=== PATIENT | female | born 1965 | race Caucasian/White ===

== ENCOUNTER 2016-05-12 01:57 | Emergency (ER) | payer OTHER ==
--- NOTE | 2016-05-12 02:52 | ED NURSING NOTES ---
Clinical Report - Nurses [facility] [address] [place] [address] 05/12/2016 1:57 [id number] TRI[facility] Triage time 02:May 12 2016. Acuity: LEVEL 3. Chief Complaint: FEVER. 02:10 05/12/16. EMELI COMA SCORE: [place] Coma Scale: 15- eyes open spontaneously (4); best verbal response- oriented x 4 (5); best motor response- obeys commands (6). --02:10 Bisi Doherty R.N. 02:10 05/12/16. BP: 185/104. HR: 89. RR: 15. O2 saturation: 100%. Temp: 97.5 F. Pain level now 4/10. --02:10 Bisi Doherty R.N. Weight: 104.3 kg stated. Height/Length: 67 inches Per Patient. BMI: 36. --02:01 Bisi Doherty R.N. Medications Atenolol Oral 50 mg, at bedtime. Hydrochlorothiazide Oral 25 mg, daily. Lantus Subcutaneous 48 units, 2x a day. --02:05 Bisi Doherty R.N. Tramadol HCL Oral 50 mg, at bedtime. --02:05 Bisi Doherty R.N. Novalog 30 units base and sliding scale, three times a day. --02:06 Bisi Doherty R.N. Amoxicillin Oral. --02:09 Bisi Doherty R.N. Allergies No Known Drug Allergy. --02:05 Bisi Doherty R.N. Medication/allergy information source: the patient. --02:10 Bisi Doherty R.N. History Arrived by private vehicle. Historian: patient. Accompanied by friend. Onset. (4 days ago). ( reported fever, has no thermometer at home but has had chills and sweats. feels like speech is slurring. Under alot of stress. scared she is having a stoke. no other stroke symptoms.). She has had a cough productive of scant amounts of yellow, green sputum. She has had a sore throat. 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 PAST MEDICAL HX: Immunizations: seasonal influenza. SOCIAL HX: Never smoker. No alcohol use or drug use. No recent travel. No infectious disease exposure. No known contact with a sick individual. ABUSE ASSESSMENT: No report of abuse. SELF HARM ASSESSMENT: A self harm assessment was performed. The patient answered "no" to the question "Have you recently felt down, depressed, or hopeless?", "Have you noticed less interest or pleasure in doing things?", "Do you have thoughts of harming or killing yourself?", "Are you here because you tried to hurt yourself?", "Have you ever tried to hurt yourself before today?", "Have you recently had thoughts about harming or killing others?" and "Do you have any dangerous items in your possession?". NUTRITIONAL RISK ASSESSMENT: The nutritional risk assessment revealed no deficiencies. FUNCTIONAL ASSESSMENT: Functional assessment: no impairments noted. LEARNING NEEDS ASSESSMENT: The learning needs assessment revealed no barriers. SKIN INTEGRITY ASSESSMENT: Skin integrity risk assessment completed. No skin integrity risk identified. --02:10 Bisi Doherty R.N. PROBLEMS: Hyperglycemia. Hypokalemia. Environmental Allergies. Panic Attack. Chest Pain. Asthma. --02:07 Bisi Doherty R.N. Hypertension [RuleOut]. --02:48 Gilmar Gould MD The following entry was modified by Gilmar Gould MD, 02:48 <<STRICKEN ENTRY-- Hypertension. --21:29 Bisi Doherty R.N. --END STRIKE>>. ADDITIONAL SURGERIES: Hysterectomy. --02:07 Bisi Doherty R.N. Interventions ID band on patient. --02:10 Bisi Doherty R.N. PHYSICAL ASSESSMENT 02:15 05/12/16. To room via wheelchair. GENERAL / NEURO / PSYCH: Alert. Oriented X 4. Appears anxious. HEENT: Pupils equal, round and reactive to light. No nasal discharge. Mucous membranes are pink. RESPIRATORY: Respirations not labored. Cough. Breath sounds within normal limits. CVS: Capillary refill less than 2 seconds. Pulses within normal limits. GI / : Abdomen nontender. No emesis noted. No difficulty with urination. SKIN: Skin intact. Skin is warm and dry. Normal skin turgor. No skin rash or swelling. --02:15 Bisi Doherty R.N. NURSING PROGRESS NOTES 02:01 05/12/16. The initial plan of care for this patient includes an assessment with efforts to address the presence of pain; hydration needs; therapeutic needs of the patient as indicated by complaint specific guidelines. This plan of care was discussed with the patient. Patient gowned. Reassurance given to the patient. Two patient identifiers checked. Call light placed in reach. Side rails up x 1. Bed placed in lowest position. Brakes of bed on. Patient ready for evaluation. --02:14 Bisi Doherty R.N. DISPOSITION / DISCHARGE 03:04 05/12/16. Departure time: 03:May 12 2016. Condition at departure: improved and stable. The goals identified in the patient's plan of care were met. No learning barriers present. Reviewed referral to a primary care physician for followup. Summary of care provided to patient via paper. Patient verbalized understanding. Written instructions provided in Italian. The patient was discharged home and accompanied by concrete paving supervisor. She left the Emergency Department ambulatory and via private vehicle. Glove Tagger driving. --03:04 Bsii Doherty R.N. 03:04 05/12/16. BP: 169/96. HR: 84. RR: 16. O2 saturation: 100%. Temp: 98.0 F. Pain level now 05/21. --03:04 Bisi Doherty R.N. Locked/Released at 05/12/2016 3:09 by Bisi Doherty R.N.
--- NOTE | 2016-05-12 02:52 | ED CLINICAL REPORT ---
Clinical Report - Physicians/Mid Levels [facility] [address] [place] [address] 05/12/2016 1:57 Patient: ANNA MARROQUIN Time Seen: 02:09. Arrived- By private vehicle. Historian- patient. HISTORY OF PRESENT ILLNESS Chief Complaint: COUGH. This started about 4 days ago and is still present. It was gradual in onset and has been constant and waxing/waning. The illness is described as moderate. The patient has had a cough, nasal congestion, sinus pressure, chills and muscle aches. She has had a nasal discharge. She has had moderate amounts of thick, yellow sputum. No chest discomfort or pain. Recent medical care: The patient was seen recently at another facility in a clinic. Seen for similar symptoms. Evaluation/treatment: antibiotic prescribed and see medication list. Diagnosis: bronchitis. REVIEW OF SYSTEMS The patient has had chills and experienced sweats. No fever, calf pain, chest pain, pedal edema or palpitations. No abdominal pain, constipation, diarrhea, nausea or vomiting. No urinary problems. She is anxious about her blood pressure being high. All systems otherwise negative, except as recorded above. PAST HISTORY Problems: Dehydration. Laceration. Adverse Drug Reaction. URI. Diarrhea. Dental Pain. Hyperglycemia. Hypokalemia. Vomiting. Abdominal Pain. Animal Bite. Contusion. Sprain. Insect Bite(s). Skin Rash. Insomnia. Environmental Allergies. Panic Attack. Chest Pain. Anxiety Reaction. Asthma. Diabetes Mellitus. Additional Surgeries: Hysterectomy. Medications: Amoxicillin Oral. Novalog 30 units base and sliding scale, three times a day. Tramadol HCL Oral 50 mg, at bedtime. Atenolol Oral 50 mg, at bedtime. Hydrochlorothiazide Oral 25 mg, daily. Lantus Subcutaneous 48 units, 2x a day. Allergies: No Known Drug Allergy. SOCIAL HISTORY Never smoker. No alcohol use or drug use. FAMILY HISTORY Denies family medical history. ADDITIONAL NOTES The nursing notes have been reviewed. PHYSICAL EXAM Vital Signs: 05/12/2016 02:10 BP: 185/104. HR: 89. RR: 15. O2 saturation: 100%. Temp: 97.5 F. Have been reviewed. Appearance: Alert. Anxious. Eyes: Pupils equal, round and reactive to light. Eyes normal inspection. ENT: Ears normal. Nose normal. Pharynx normal. Neck: Normal inspection. Neck supple. CVS: Normal heart rate and rhythm. Heart sounds normal. Respiratory: No respiratory distress. Breath sounds normal. Abdomen: Soft and nontender. No organomegaly. Back: Normal inspection. Skin: Skin warm and dry. Normal skin color. Normal skin turgor. Extremities: Extremities exhibit normal ROM. No calf tenderness. No lower extremity edema. LABS, X-RAYS, AND EKG Laboratory Tests: UA-Culture if indicated: (NATHALY: 05/12/2016 02:05) ( MsgRcvd 05/12/2016 02:41) Final results Test Result Flag Units (Reference) URINE COLOR YELLOW URINE APPEARANCE CLEAR URINE GLUCOSE NEGATIVE (NEGATIVE) URINE BILIRUBIN NEGATIVE (NEGATIVE) URINE KETONE NEGATIVE (NEGATIVE) URINE SPECIFIC GRAVITY <= 1.005 L (1.010-1.030) URINE PH 6.0 (5.0-8.0) URINE PROTEIN NEGATIVE (NEGATIVE) URINE UROBILINOGEN 0.2 EU/dL (0.2-1.0) URINE NITRITE NEGATIVE (NEGATIVE) URINE BLOOD NEGATIVE (NEGATIVE) URINE LEUK ESTERASE NEGATIVE (NEGATIVE) URINE RBC RARE rbc/hpf (0-1) URINE WBC RARE wbc/hpf (0-1) URINE EPITHELIAL CELLS 0-1 EPI/hpf (0-5) URINE BACTERIA NONE SEEN (NONE SEEN) URINE COMMENT CULT NOT INDICATED URINE CULTURES ARE SET-UP BASED ON THE FOLLOWING CRITERIA:POSITIVE NITRITEPOSITIVE LEUKOCYTE ESTERASEGREATER THAN 10 WHITE BLOOD CELLSMODERATE (2+) OR GREATER BACTERIA . PROGRESS AND PROCEDURES Course of Care: Patient is stable. Patient/family counseled. Old medical records reviewed. Disposition: Discharged. Condition: stable. CLINICAL IMPRESSION Hypertension. Possible bronchitis. INSTRUCTIONS Your Current Medications: CONTINUE TAKING THE FOLLOWING MEDICATIONS: Amoxicillin Oral. Atenolol Oral : 50 mg at bedtime. Hydrochlorothiazide Oral : 25 mg daily. Lantus Subcutaneous : 48 units 2x a day. Novalog* : 30 units base and sliding scale three times a day. Tramadol HCL Oral : 50 mg at bedtime. Follow-up: Follow up with your doctor in seven days. Call for the next available appointment. (Electronically signed by Gilmar Gould MD 05/13/2016 1:34)
--- NOTE | 2016-05-12 02:52 | ED ORDER SUMMARY ---
..... Patient: ANNA MARROQUIN OrderSheet [facility] VisitID: [id number] [address] [place] [address] 50y, F Registration Date/Time: 05/12/2016 ORDER SHEET Weight: 104.3 kg (stated) Allergies: No Known Drug Allergy GENERAL ORDERS: UA-Culture if indicated Urgent (02:12 05/12/2016 Harry Blunt per protocol) (2:22 AMcQuoid ER Tech1) MEDICATION ORDERS: IV FLUIDS: ORDER SHEET NOTES: [Electronically signed by Bisi Doherty R.N. (03:09 05/12/2016)] [Electronically signed by Gilmar Gould MD (01:33 05/13/2016)] [Electronically locked/signed by Bisi Doherty R.N. (03:09 05/12/2016)]
--- NOTE | 2016-05-12 02:52 | ED ORDER SUMMARY ---
..... Patient: ANNA MARROQUIN OrderSheet [facility] VisitID: [id number] [address] [place] [address] 50y, F Registration Date/Time: 05/12/2016 ORDER SHEET Weight: 104.3 kg (stated) Allergies: No Known Drug Allergy GENERAL ORDERS: UA-Culture if indicated Urgent (02:12 05/12/2016 Harry Blunt per protocol) (2:22 AMcQuoid ER Tech1) MEDICATION ORDERS: IV FLUIDS: ORDER SHEET NOTES: [Electronically signed by Bisi Doherty R.N. (03:09 05/12/2016)] [Electronically signed by Gilmar Gould MD (01:33 05/13/2016)] [Electronically locked/signed by Bisi Doherty R.N. (03:09 05/12/2016)]
--- NOTE | 2016-05-12 02:52 | ED NURSING NOTES ---
Clinical Report - Nurses [facility] [address] [place] [address] 05/12/2016 1:57 [id number] Triage time 02:May 12 2016. Acuity: LEVEL 3. Chief Complaint: FEVER. 02:10 05/12/16. EMELI COMA SCORE: [place] Coma Scale: 15- eyes open spontaneously (4); best verbal response- oriented x 4 (5); best motor response- obeys commands (6). --02:10 Bisi Doherty R.N. 02:10 05/12/16. BP: 185/104. HR: 89. RR: 15. O2 saturation: 100%. Temp: 97.5 F. Pain level now 4/10. --02:10 Bisi Doherty R.N. Weight: 104.3 kg stated. Height/Length: 67 inches Per Patient. BMI: 36. --02:01 Bisi Doherty R.N. Medications Atenolol Oral 50 mg, at bedtime. Hydrochlorothiazide Oral 25 mg, daily. Lantus Subcutaneous 48 units, 2x a day. --02:05 Bisi Doherty R.N. Tramadol HCL Oral 50 mg, at bedtime. --02:05 Bisi Doherty R.N. Novalog 30 units base and sliding scale, three times a day. --02:06 Bisi Doherty R.N. Amoxicillin Oral. --02:09 Bisi Doherty R.N. Allergies No Known Drug Allergy. --02:05 Bisi Doherty R.N. Medication/allergy information source: the patient. --02:10 Bisi Doherty R.N. History Arrived by private vehicle. Historian: patient. Accompanied by friend. Onset. (4 days ago). ( reported fever, has no thermometer at home but has had chills and sweats. feels like speech is slurring. Under alot of stress. scared she is having a stoke. no other stroke symptoms.). She has had a cough productive of scant amounts of yellow, green sputum. She has had a sore throat. 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 PAST MEDICAL HX: Immunizations: seasonal influenza. SOCIAL HX: Never smoker. No alcohol use or drug use. No recent travel. No infectious disease exposure. No known contact with a sick individual. ABUSE ASSESSMENT: No report of abuse. SELF HARM ASSESSMENT: A self harm assessment was performed. The patient answered "no" to the question "Have you recently felt down, depressed, or hopeless?", "Have you noticed less interest or pleasure in doing things?", "Do you have thoughts of harming or killing yourself?", "Are you here because you tried to hurt yourself?", "Have you ever tried to hurt yourself before today?", "Have you recently had thoughts about harming or killing others?" and "Do you have any dangerous items in your possession?". NUTRITIONAL RISK ASSESSMENT: The nutritional risk assessment revealed no deficiencies. FUNCTIONAL ASSESSMENT: Functional assessment: no impairments noted. LEARNING NEEDS ASSESSMENT: The learning needs assessment revealed no barriers. SKIN INTEGRITY ASSESSMENT: Skin integrity risk assessment completed. No skin integrity risk identified. --02:10 Bisi Doherty R.N. PROBLEMS: Hyperglycemia. Hypokalemia. Environmental Allergies. Panic Attack. Chest Pain. Asthma. --02:07 Bisi Doherty R.N. Hypertension [RuleOut]. --02:48 Gilmar Gould MD The following entry was modified by Gilmar Gould MD, 02:48 <<STRICKEN ENTRY-- Hypertension. --21:29 Bisi Doherty R.N. --END STRIKE>>. ADDITIONAL SURGERIES: Hysterectomy. --02:07 Bisi Doherty R.N. Interventions ID band on patient. --02:10 Bisi Doherty R.N. PHYSICAL ASSESSMENT 02:15 05/12/16. To room via wheelchair. GENERAL / NEURO / PSYCH: Alert. Oriented X 4. Appears anxious. HEENT: Pupils equal, round and reactive to light. No nasal discharge. Mucous membranes are pink. RESPIRATORY: Respirations not labored. Cough. Breath sounds within normal limits. CVS: Capillary refill less than 2 seconds. Pulses within normal limits. GI / : Abdomen nontender. No emesis noted. No difficulty with urination. SKIN: Skin intact. Skin is warm and dry. Normal skin turgor. No skin rash or swelling. --02:15 Bisi Doherty R.N. NURSING PROGRESS NOTES 02:01 05/12/16. The initial plan of care for this patient includes an assessment with efforts to address the presence of pain; hydration needs; therapeutic needs of the patient as indicated by complaint specific guidelines. This plan of care was discussed with the patient. Patient gowned. Reassurance given to the patient. Two patient identifiers checked. Call light placed in reach. Side rails up x 1. Bed placed in lowest position. Brakes of bed on. Patient ready for evaluation. --02:14 Bisi Doherty R.N. DISPOSITION / DISCHARGE 03:04 05/12/16. Departure time: 03:May 12 2016. Condition at departure: improved and stable. The goals identified in the patient's plan of care were met. No learning barriers present. Reviewed referral to a primary care physician for followup. Summary of care provided to patient via paper. Patient verbalized understanding. Written instructions provided in Macedonian. The patient was discharged home and accompanied by grants manager. She left the Emergency Department ambulatory and via private vehicle. Auctioneer Art driving. --03:04 Bisi Doherty R.N. 03:04 05/12/16. BP: 169/96. HR: 84. RR: 16. O2 saturation: 100%. Temp: 98.0 F. Pain level now 05/21. --03:04 Bisi Doherty R.N. Locked/Released at 05/12/2016 3:09 by Bisi Doherty R.N.
--- NOTE | 2016-05-13 01:34 | ED DISCHARGE INSTRUCTIONS ---
Patient: ANNA MARROQUIN General Instructions [facility] VisitID: [id number] [place] [address] 50y, F Registration Date/Time: 05/12/2016 Hypertension. INSTRUCTIONS Your Current Medications: CONTINUE TAKING THE FOLLOWING MEDICATIONS: Amoxicillin Oral. Atenolol Oral : 50 mg at bedtime. Hydrochlorothiazide Oral : 25 mg daily. Lantus Subcutaneous : 48 units 2x a day. Novalog* : 30 units base and sliding scale three times a day. Tramadol HCL Oral : 50 mg at bedtime. Follow-up: Follow up with your doctor in seven days. Call for the next available appointment. ADDITIONAL INFORMATION Bronchitis (Adult: Abx Tx) BRONCHITIS is an infection of the air passages (bronchial tubes). It often occurs during the common cold. Symptoms include cough with mucus (phlegm) and low-grade fever. Bronchitis usually lasts 7-14 days. Mild cases can be treated with simple home remedies. More severe infection is treated with an antibiotic. Home Care: If symptoms are severe, rest at home for the first 2-3 days. When you resume activity, don't let yourself get too tired. Do not smoke. Avoid being exposed to the smoke of others. You may use acetaminophen (Tylenol) or ibuprofen (Motrin, Advil) to control fever or pain, unless another medicine was prescribed for this. [NOTE: If you have chronic liver or kidney disease or ever had a stomach ulcer or GI bleeding, talk with your doctor before using these medicines.] Your appetite may be poor, so a light diet is fine. Avoid dehydration by drinking 6-8 glasses of fluids per day (water, soft, drinks, juices, tea, soup, etc.). Extra fluids will help loosen secretions in the lungs. Dqua-yrd-dtztogx cough medicines that containdextromethorphan(such as Robitussin DM) and decongestants (Actifed or Sudafed) may help relieve cough and congestion. [NOTE: Do not use decongestants if you have high blood pressure.] Finish all antibiotic medicine, even if you are feeling better after only a few days. Follow Up with your doctor or as directed if you dont start to feel better after three days. [NOTE: If you are age 65 or older, or if you have chronic asthma or COPD, we recommend a PNEUMOCOCCAL VACCINATION every five years and a yearly INFLUENZAVACCINATION (FLU-SHOT) every . Ask your doctor about this. If you had an X-ray, a radiologist will review it. You will be notified of any new findings that may affect your care.] Get Prompt Medical Attention if any of the following occur: Fever over 100.4F (38.0C) for more than three days Trouble breathing, wheezing or pain with breathing Coughing up blood or increased amounts of colored sputum Weakness, drowsiness, headache, facial pain, ear pain or a stiff neck High Blood Pressure --Established High Blood Pressure (Hypertension) is a chronic disease. The cause is unknown in most cases. It can usually be controlled with lifestyle changes and/or medicines. Symptoms of high blood pressure may include headache, dizziness, visual changes, chest pain and shortness of breath. Sometimes it causes no symptoms at all. However, even if there are no symptoms, untreated high blood pressure increases the risk of heart attack, also known as acute myocardial infarction, or AMI, and stroke. It is a serious health risk and should not be ignored. A normal blood pressure is 120/80 or less. The first (top) number is the "systolic" pressure. The second (bottom) number is the "diastolic" pressure. Hypertension exists when either the top number is 140 or higher, OR the bottom number is 90 or higher on repeated measurements. Home Care: All patients with high blood pressure should do the following to lower their pressure. If you are on medicines, then these methods may reduce or eliminate your need for medicines in the future. Begin a weight loss program if you are overweight. Reduce your salt intake. Avoid high salt foods (olives, pickles, smoked meats, salted potato chips, etc.). Do not add salt to your food at the table. Use only small amounts of salt when cooking. Begin an exercise program. Discuss with your doctor what type of exercise program would be best for you. It doesn't have to be difficult. Even brisk walking for 20 minutes three times a week is a good form of exercise. Avoid medicines which contain heart stimulants. This includes many cold and sinus decongestant pills and sprays as well as diet pills. Check the warnings about hypertension on the label. Stimulants such as amphetamine or cocaine could be lethal for someone with hypertension. Never take these. Limit your caffeine intake or switch to caffeine-free products. Stop smoking. If you are a long-time smoker, this can be hard. Enroll in a stop-smoking program to improve your chance of success. Learning how to handle stress better is an important part of any program to lower blood pressure. Learn about relaxation methods such as meditation, yoga or biofeedback. If medicines were prescribed, take them exactly as directed. Missing doses may cause your blood pressure get out of control. Consider buying an automatic blood pressure machine (available at most pharmacies). Use this to monitor your blood pressure at home and report the results to your doctor. Follow Up: Regular visits to your own physician for blood pressure checks and medicine adjustment is an important part of your care. Make a follow-up appointment as directed by our staff. Get Prompt Medical Attention if any of the following occur: Chest pain or shortness of breath Severe headache Throbbing or rushing sound in the ears Nosebleed Sudden severe abdominal pain Extreme drowsiness, confusion or fainting Dizziness or vertigo (dizziness with spinning sensation) Weakness of an arm or leg or one side of the face Difficulty with speech or vision You have been given the following additional information: Bronchitis, Antiobiotic Treatment (Adult) Hypertension, Established (Electronically signed by Gilmar Gould MD 05/13/2016 1:34)
--- NOTE | 2016-05-13 01:34 | ED MED RECONCILIATION SUMMARY ---
Patient: ANNA MARROQUIN Medication Reconciliation Report [facility] VisitID: [id number] [address] [place] [address] 50y, F Registration Date/Time: 05/12/2016 Weight: 104.3 kg Height/Length: 67 in. BMI: 36.0 ALLERGIES: No Known Drug Allergy The patient's Home Medications are listed below: CONTINUE TAKING THE FOLLOWING MEDICATIONS: Amoxicillin Oral Atenolol Oral 50 mg, at bedtime Hydrochlorothiazide Oral 25 mg, daily Lantus Subcutaneous 48 units, 2x a day Novalog 30 units base and sliding scale, three times a day Tramadol HCL Oral 50 mg, at bedtime The source(s) of the original Home Medication information: patient The following Medications were given to the patient in the Emergency Department: None. The following Medications were prescribed to the patient: None.
--- NOTE | 2016-05-13 01:34 | ED MAR SUMMARY ---
..... Medication Administration Record [facility] [address], [place] [id number] Patient: ANNA MARROQUIN Visit ID: [id number] 50y, F Weight: 104.3 kg Height/Length: 67 in BMI: 36 ALLERGIES: No Known Drug Allergy
--- NOTE | 2016-05-13 01:34 | ED MED RECONCILIATION SUMMARY ---
Patient: ANNA MARROQUIN Medication Reconciliation Report [facility] VisitID: [id number] [address] [place] [address] 50y, F Registration Date/Time: 05/12/2016 Weight: 104.3 kg Height/Length: 67 in. BMI: 36.0 ALLERGIES: No Known Drug Allergy The patient's Home Medications are listed below: CONTINUE TAKING THE FOLLOWING MEDICATIONS: Amoxicillin Oral Atenolol Oral 50 mg, at bedtime Hydrochlorothiazide Oral 25 mg, daily Lantus Subcutaneous 48 units, 2x a day Novalog 30 units base and sliding scale, three times a day Tramadol HCL Oral 50 mg, at bedtime The source(s) of the original Home Medication information: patient The following Medications were given to the patient in the Emergency Department: None. The following Medications were prescribed to the patient: None.
--- NOTE | 2016-05-13 01:34 | ED MAR SUMMARY ---
..... Medication Administration Record [facility] [address] [place], [place] [id number] Patient: ANNA MARROQUIN Visit ID: [id number] 50y, F Weight: 104.3 kg Height/Length: 67 in BMI: 36 ALLERGIES: No Known Drug Allergy
== END 2016-05-12 03:04 | disposition home or self-care (01) ==
LOC: ED SRH 01:57
DX: I10 Essential (primary) hypertension (principal); R05 Cough; E11.9 Type 2 diabetes mellitus without complications; E87.6 Hypokalemia; Z79.4 Long term (current) use of insulin; Z79.891 Long term (current) use of opiate analgesic; Z79.899 Other long term (current) drug therapy
CPT/HCPCS: 90004

== ENCOUNTER 2016-06-15 18:46 | Emergency (ER) | payer OTHER ==
--- NOTE | 2016-06-15 20:52 | DIAGNOSTIC IMAGING REPORT ---
PROCEDURE: XR CHEST 1 VIEW INDICATION: Chest pain. TECHNIQUE: Portable AP view (19 3 hours). COMPARISON: Compared to chest x-ray on 07/31/2014. FINDINGS: Allowing for overlying wires and electrodes, lungs are clear. Heart and mediastinum are normal. Thorax is normal. IMPRESSION: 1. Negative chest.
--- NOTE | 2016-06-15 20:53 | DIAGNOSTIC IMAGING REPORT ---
PROCEDURE: US VENOUS - BILATERAL EXT INDICATION: Bilateral leg pain, left greater than right. TECHNIQUE: Color Doppler duplex imaging of the deep and superficial venous system without and with compression. COMPARISON: None. FINDINGS: RIGHT LOWER EXTREMITY: Deep and superficial venous system of the right lower extremity is within normal limits. There is no evidence of deep vein thrombosis or superficial thrombophlebitis. LEFT LOWER EXTREMITY: Deep and superficial venous system of the left lower extremity is within normal limits. There is no evidence of deep vein thrombosis or superficial thrombophlebitis. IMPRESSION: 1. Negative venous ultrasound of the bilateral lower extremities.
--- NOTE | 2016-06-15 22:11 | ED CLINICAL REPORT ---
Clinical Report - Physicians/Mid Levels [facility] [address] [place] [address] 06/15/2016 18:47 Patient: ANNA MARROQUIN Time Seen: 1856. Arrived- By private vehicle. Historian- patient. HISTORY OF PRESENT ILLNESS Chief Complaint: CHEST PAIN. At its maximum, severity described as moderate. It is described as "pain". No radiation. This started past several days more frequently but started around a month ago and is still present but is better now. (staying the same). It was abrupt in onset and has been intermittent but is not gone now. No nausea, vomiting, difficulty breathing or diaphoresis. (pain to the left lower extremity. worried about DVT. reports no other concerns. 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 No additional chest pain. Similar symptoms previously: None. Recent medical care: Not recently seen/assessed. REVIEW OF SYSTEMS No fever, chills, pedal edema, black stools or skin rash. No bloody stools. All systems otherwise negative, except as recorded above. PAST HISTORY See nurses notes. Medications: Atenolol Oral 50 mg, at bedtime. Hydrochlorothiazide Oral 25 mg, daily. Lantus Subcutaneous 48 units, 2x a day. Novalog 30 units base and sliding scale, three times a day. Tramadol HCL Oral 50 mg, at bedtime. Allergies: No Known Drug Allergy. SOCIAL HISTORY Smoker- current status unknown. History of occasional drug use: marijuana. No alcohol use. No recent travel. Is a local resident. ADDITIONAL NOTES The nursing notes have been reviewed. PHYSICAL EXAM Vital Signs: 06/15/2016 18:58 BP: 162/98. HR: 100. RR: 18. O2 saturation: 96%. Temp: 98.3 F. Oxygen saturation normal. Appearance: Alert. Oriented X3. No acute distress. Eyes: Pupils equal, round and reactive to light. Eyes normal inspection. Neck: Normal inspection. Neck supple. No JVD. CVS: Normal heart rate and rhythm. Heart sounds normal. Pulses normal. Respiratory: No respiratory distress. Breath sounds normal. Chest nontender. Abdomen: Soft and nontender. Bowel sounds normal. Back: Normal external inspection. Skin: Skin warm and dry. Normal skin color. No rash. Normal skin turgor. Extremities: Extremities exhibit normal ROM. No lower extremity edema. LABS, X-RAYS, AND EKG EKG: No acute process. No acute ischemia. Normal EKG. Rate: 96. Normal P waves. Normal VÍCTOR. Normal QRS complex. Normal axis. Normal ST and T waves, QT and QTc. The study has been interpreted contemporaneously. The study has been independently viewed by me. The EKG appears to be a good tracing. Chest X-ray: (PROCEDURE: XR CHEST 1 VIEW INDICATION: Chest pain. TECHNIQUE: Portable AP view (19 3 hours). COMPARISON: Compared to chest x-ray on 07/31/2014. FINDINGS: Allowing for overlying wires and electrodes, lungs are clear. Heart and mediastinum are normal. Thorax is normal. IMPRESSION: 1. Negative chest.). Views: PA. The X-rays were independently viewed by me and interpreted by the radiologist. The X-rays were discussed with the radiologist (via pacs). Lower Extremity Sonography: Negative exam. No compression abnormality noted. The exam was performed by a photovoltaic testing technician. Laboratory Tests: Urine: (NATHALY: 06/15/2016 20:30) ( [facility] 20:52) Final results Test Result Flag Units (Reference) URINE NEGATIVE CBC w Diff: (NATHALY: 06/15/2016 19:05) ( [facility] 06/15/2016 19:29) Final results Test Result Flag Units (Reference) WHITE BLOOD COUNT 12.5 H K/uL (4.5-11.5) RED BLOOD COUNT 5.17 M/uL (4.00-5.20) HEMOGLOBIN 14.1 gm/dL (12.0-16.0) HEMATOCRIT 42.5 % (36.0-46.0) MEAN CELL VOLUME 82 fL (80-100) MEAN CORPUSCULAR HGB 27 pg (26-34) MEAN CORPUSCULAR HGB CONC 33 g/dL (31-37) RED CELL DISTRIBUTION WIDTH 13.8 % (11.6-14.8) PLATELET COUNT 265 K/uL (150-400) NEUTROPHIL % 60.9 % (50-75) LYMPH % 30.1 % (25-40) MONO % 5.9 % (3-14) EOSINOPHIL % 2.1 % (0-4) BASOPHIL % 1.0 % (0-2) [id number]: (NATHALY: 06/15/2016 19:05) ( [facility] 06/15/2016 20:05) Final results Test Result Flag Units (Reference) D-DIMER QUANTITATIVE < 0.27 L ug/mLFEU (0.27-0.52) The primary value of this quantitative assay relates toits negative predictive value (i.e. exclusion) of pulmonaryembolism/deep vein thrombosis/DIC.Elevated levels of d-dimer may also occur with:, age, cancer, inflammation, liver disease,post-op, infection, hematoma, coronary disease, peripheralarteriopathy, bleeding disorders and thrombolytic treatment.Results should be correlated with other clinical andradiological data.Testing Methodology: Latex Immunoassay Troponin-I: (NATHALY: 06/15/2016 21:20) ( [facility] 06/15/2016 22:02) Final results Test Result Flag Units (Reference) TROPONIN I <0.05 ng/mL (0.00-1.5) TROPONIN REFERENCE RANGE:<0.1 NEGATIVE0.1-1.5 INDETERMINANT>1.5 POSITIVE Urine Drug Screen: (NATHALY: 06/15/2016 20:30) ( [facility] 06/15/2016 20:53) Final results Test Result Flag Units (Reference) AMPHETAMINE/METHAMPHETAMINE NEGATIVE (NEGATIVE) BARBITURATE NEGATIVE (NEGATIVE) BENZODIAZEPINE NEGATIVE (NEGATIVE) CANNABINOID NEGATIVE (NEGATIVE) COCAINE NEGATIVE (NEGATIVE) ECSTASY NEGATIVE (NEGATIVE) METHADONE NEGATIVE (NEGATIVE) OPIATE NEGATIVE (NEGATIVE) The urine drug screen is a qualitative screening test fordrug overdose and abuse. All screen results should beconsidered as presumptive.Drugs screened for are as follows:BenzodiazepinesCocaineAmphetamines/MetamphetaminesTHC (Tetrahydrocannabinol)OpiatesBarbituratesEcstasyMethadonePositive results are unconfirmed. For confirmation, notifythe lab for the specimen to be sent to the reference lab.All confirmations must be performed by a differentmethodology.The ingestion of natural herbal and plant productscontaining Ephedra/Ephedra metabolites can produce in urineone or more substances capable of cross reacting withamphetamine/methamphetamine immunoassays. These testsprovide a preliminary result only. A more specificalternative chemical method must be used to obtain aconfirmed analytical result. CMP: (NATHALY: 06/15/2016 19:05) ( [facility] 06/15/2016 19:58) Final results Test Result Flag Units (Reference) GLUCOSE 120 H mg/dL (70-110) BUN 8 mg/dL (7-18) CREATININE 0.8 mg/dL (0.6-1.3) Estimated GFR >60 mL/min Estimated GFR- >60 mL/min Note: Persistent reduction over 3 months in eGFR<60 mL/min/1.73 m2 defines CKD. Patients with eGFR values>=60 mL/min/1.73 m2 may also have CKD if evidence ofpersistent proteinuria. Additional information may be foundat [email or web address].org. SODIUM 140 mmol/L (136-145) POTASSIUM 3.3 L mmol/L (3.5-5.1) CHLORIDE 101 mmol/L (98-107) CARBON DIOXIDE 29 mmol/L (21-32) CALCIUM 10.1 mg/dL (8.5-10.1) TOTAL PROTEIN 8.1 g/dL (6.4-8.2) ALBUMIN 4.1 g/dL (3.3-5.0) BILIRUBIN, TOTAL 0.4 mg/dL (0.0-1.0) ALKALINE PHOSPHATASE 79 U/L (46-116) AST (SGOT) 34 U/L (15-37) ALT (SGPT) 46 U/L (12-78) TROPONIN I <0.05 L ng/mL (0.00-1.5) TROPONIN REFERENCE RANGE:<0.1 NEGATIVE0.1-1.5 INDETERMINANT>1.5 POSITIVE . PROGRESS AND PROCEDURES Course of Care: thee patient is a pleasant 50-year-old female with past medical history significant for anxiety and diabetes presented for evaluation of chest pain. Symptoms appear to be atypical in nature. Patient has been having off-and-on symptoms for about a month. They've been more frequently over the past few days. Do not appear to be exertional. Patient be evaluated the chest x-ray, EKG, and laboratory studies. Because of the patient's intermittent symptoms, she will be evaluated with a delta troponin. Patient is also having left lower extremity discomfort and has a history of diabetes. Patient be evaluated for DVT with a d-dimer as well as bilateral ultrasound of the lower shrubberies. The patient does not have any significant risk factors for DVT other than those mentioned previously. No swelling noted to the legs. Patient is agreeable to treatment plan. The patient's workup is noted for the findings above. D-dimer is noted to be less than detectable range. Troponin first set is also noted to be negative. No acute findings on EKG. Chest x-ray is also clear. Patient has been resting in bed in no acute distress. Patient has made multiple requests for something to eat and drink. reminded patient that she is in the emergency department and needs to remain nothing by mouth in case of any emergent medical procedure needing to be done under sedation or General anesthesia. The patient's second troponin had returned. Patient's workup is otherwise unremarkable. patient is a good outpatient candidate for outpatient cardiology follow-up. Information for cardiology provided. Contact number provided. Also provided patient with my personal cell phone number for any questions or problems with arranging follow-up. Because of the patient's negative workup, do not fill patient has DVT, PE, thoracic aortic dissection, or acute myocardial infarction. Also do not think patient has pneumonia or pneumothorax. Prior to patient's discharge from the emergency department she was given food and drink while here in the emergency department. After eating, patient had reported burping and sour taste in her mouth as well as some reflux symptoms. Patient was given a GI cocktail which significantly improved her symptoms. Do not feel patient is being admitted to the hospital or require further emergency department workup/evaluation. Patient has been hemodynamically within normal limits and a good outpatient candidate. Discussed with patient her workup here in the emergency department included home care, follow-up, and return precautions. All questions have been answered. The patient expressed understanding of these instructions and was agreeable to them. Disposition: Discharged. Condition: good. CLINICAL IMPRESSION 06/15/2016 20:57 BP: 148/81. HR: 97. RR: 17. O2 saturation: 98%. Pain level now: 0/10. Oxygen saturation normal. Atypical chest pain .12 lead EKG performed. (acute). INSTRUCTIONS Warnings: GENERAL WARNINGS: Return or contact your physician immediately if your condition worsens or changes unexpectedly, if not improving as expected, or if other problems arise. SPECIFICALLY, return if you develop chest, neck, jaw, shoulder, arm, or back pain, difficulty breathing, a fluttering sensation in your chest, lightheadedness, fainting, excessive fatigue, or sudden sweating. Your Current Medications: CONTINUE TAKING THE FOLLOWING MEDICATIONS: Atenolol Oral : 50 mg at bedtime. Hydrochlorothiazide Oral : 25 mg daily. Lantus Subcutaneous : 48 units 2x a day. Novalog* : 30 units base and sliding scale three times a day. Tramadol HCL Oral : 50 mg at bedtime. Prescription Medications: Pepcid 20 mg: take 1 orally every 12 hours as needed for indigestion, upset stomach or heartburn. Dispense thirty (30). No refills. Substitution is permissible. OTC Medications: Aspirin 81 mg (available over the counter): take 1 orally every 24 hours. Dispense thirty (30). No refills. Follow-up: Return to the emergency department as needed. 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 Stahl . Reason for referral: call tomorrow for an appointment. inform them you were here in the emergency department with chest pain. . Summary of care provided to patient and family via paper. Follow up with your doctor in three days. Reason for referral: recheck today's concerns. Summary of care provided to patient via paper. Screening today revealed the patient's blood pressure to be in the normal range. The patient should follow up with a primary care provider for blood pressure management. Understanding of the discharge instructions verbalized by patient. (Electronically signed by Nam Harper Dr. 06/16/2016 9:45)
--- NOTE | 2016-06-15 22:12 | ED ORDER SUMMARY ---
..... Patient: ANNA MARROQUIN OrderSheet [facility] VisitID: [id number] [place] [address] 50y, F Registration Date/Time: 06/15/2016 ORDER SHEET Weight: 104.3 kg (stated) Allergies: No Known Drug Allergy GENERAL ORDERS: Cnc Lathe Machine Operator (Continuous) (CP) (19:04 06/15/2016 Kristy Rabago) (19:10 Bonnie R.N.) EKG - ER Stat (19:06/15/2016 Kristy Rabago) (Ack 19:05 Kriss) (19:10 Kriss) Pulse oximeter (:06/15/2016 Kristy Rabago) (19:10 Sanjuanaitz R.N.) Chest 1V Urgent (19:06/15/2016 Kristy Rabago) (Ack 19:06 Kriss) (19:30 KHoerner) CBC w Diff Urgent (19:05 06/15/2016 Kristy Rabago) (Ack 19:06 Kriss) (19:10 Bonnie R.N.) CMP Urgent (19:05 06/15/2016 Kristy Rabago) (Ack 19:06 Kriss) (19:10 SReitz R.N.) D-Dimer Urgent (19:05 06/15/2016 Kristy Rabago) (Ack 19:06 Kriss) (19:10 Bonnie R.N.) Urine Urgent (19:05 06/15/2016 Kristy Rabago) (Ack 19:06 Kriss) (20:33 KPage-Jacob R.N.) Urine Drug Screen Urgent (19:05 06/15/2016 Kristy Rabago) (Ack 19:06 Kriss) (20:33 KPageJoselito R.N.) Troponin-I Urgent (19:05 06/15/2016 Kristy Rabago) (Ack 19:06 Kriss) (19:10 Bonnie R.N.) US Venous Bilat Urgent (19:06/15/2016 Kristy Rabago) (Ack 19:17 Kriss) (20:33 Huber Trujillo.N.) Troponin-I (july draw now) Urgent (21:05 06/15/2016 Kristy Rabago) (Ack 21:10 IJurca ER Tech1) (22:03 IJurca ER Tech1) MEDICATION ORDERS: GI Cocktail WHITE PO 30 mL (NOW) (21:59 06/15/2016 Kristy Rabago) (22:31 Huber R.N.) IV FLUIDS: Morphine IV 4 mg (HIGH ALERT MEDICATION, NOW) (19:04 06/15/2016 Kristy Rabago) (Ack 19:13 Candy R.N.) IV Saline Lock (19:05 06/15/2016 Kristy Rabago) (Ack 19:13 JDaphne R.N.) ORDER SHEET NOTES: [Electronically signed by Patrizia Christina R.N. (23:02 06/15/2016)] [Electronically signed by Nam Harper Dr. (09:45 06/16/2016)] [Electronically locked/signed by Patrizia Christina R.N. (23:02 06/15/2016)]
--- NOTE | 2016-06-15 22:12 | ED NURSING NOTES ---
Clinical Report - Nurses [facility] [address] [place] [address] 06/15/2016 18:47 Patient: ANNA MARROQUIN TRIAGE Triage time 1850. Acuity: LEVEL 3. Chief Complaint: CHEST PAIN (chest pain started x1 month ago. 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 Alert. No acute distress. SEPSIS SCREEN: Sepsis Screen. Negative (no infection suspected/documented). LETTY COMA SCORE: Letty Coma Scale: 15- eyes open spontaneously (4); best verbal response- oriented x 4 (5); best motor response- obeys commands (6). --19:10 Le Javed R.N. 18:58 06/15/16. BP: 162/98. HR: 100. RR: 18. O2 saturation: 96%. Temp: 98.3 F. Pain level now 0/10. --19:10 Le Javed R.N. Weight: 104.3 kg stated. Height/Length: 66 inches Per Patient. BMI: 37.1. --19:03 Le Javed R.N. Medications Atenolol Oral 50 mg, at bedtime. Hydrochlorothiazide Oral 25 mg, daily. Lantus Subcutaneous 48 units, 2x a day. Novalog 30 units base and sliding scale, three times a day. Tramadol HCL Oral 50 mg, at bedtime. --19:04 Le Javed R.N. Allergies No Known Drug Allergy. --19:04 Le Javed R.N. History Arrived by private vehicle. Historian: patient. Accompanied by (boy friend). Primary physician (Dr. Cruz). ( Asked pt. to put gown on and pt. was upset stating she was going to leave and go to prov. If we didn't treat her like a patient. Educated pt. and instructed pt. about process of getting an ekg and r/o cardiac problems. Pt. agreed to stay for an ekg.). PAST MEDICAL HX: Immunizations: up-to-date. SOCIAL HX: Heavy tobacco smoker (cigarette)- less than 1 pack per day. History of drug use: marijuana. (pt. states she had not used for 20 years). No alcohol use. No infectious disease exposure. ABUSE ASSESSMENT: Abuse assessment: The patient was asked "Do you feel safe in your home?" and "Has anyone hurt you or threatened to hurt you?". No report of abuse. NUTRITIONAL RISK ASSESSMENT: The nutritional risk assessment revealed no deficiencies. FUNCTIONAL ASSESSMENT: Functional assessment: no impairments noted. LEARNING NEEDS ASSESSMENT: The learning needs assessment revealed no barriers. --19:10 Le Javed R.N. PROBLEMS: Dehydration. Laceration. Adverse Drug Reaction. URI. Diarrhea. Dental Pain. Hyperglycemia. Hypokalemia. Vomiting. Abdominal Pain. Animal Bite. Contusion. Sprain. Insect Bite(s). Skin Rash. Environmental Allergies. Panic Attack. Chest Pain. Anxiety Reaction. Asthma. Diabetes Mellitus. --19:05 Le Javed R.N. ADDITIONAL SURGERIES: Hysterectomy. --19:05 Le Javed R.N. Interventions ID band on patient. Transported via wheelchair. --19:10 eL Javed R.N. PHYSICAL ASSESSMENT To room via wheelchair. GENERAL / NEURO / PSYCH: Alert. Appears in no acute distress. HEENT: Mucous membranes are pink. RESPIRATORY: Respirations not labored. CVS: Capillary refill less than 2 seconds. SKIN: Skin is warm and dry. --19:08 Le Javed R.N. CVS: Cardiac rhythm: normal sinus rhythm; (86). --19:10 Le Javed R.N. ( MD at bedside assessing pt. assumed care of pt, pt pain free at this time, pt in SR on monitor, pt reports pain to left lower extremity that has wax/wane and is concerned for a clot. pt reports no hx, does have diabetic neuropathy, however reports "this is a different pain" s/o at bedside). GENERAL / NEURO / PSYCH: Alert. Oriented X 4. HEENT: Pupils equal, round and reactive to light. Mucous membranes are pink. RESPIRATORY: Respirations not labored. Breath sounds within normal limits. CVS: Cardiac rhythm: (SR). Capillary refill less than 2 seconds. SKIN: Skin is warm and dry. Normal skin turgor. --19:23 Patrizia Christina R.N. NURSING PROGRESS NOTES 19:07 06/15/2016 Site #1 started via IV in the left antecubital space with an 20g angiocath, with aseptic technique and good blood return; one attempt. Blood drawn. Labeled in the presence of the patient and sent to the lab. Saline lock flushed with 10 mL saline (accessed by Judah Cornejo RN). --19:07 Le Javed R.N. retirement actuary, pulse oximeter and NIBP monitor placed on patient; cardiac care nurse- Lead II; monitor alarms on. Patient gowned. Head of bed elevated. Two patient identifiers checked. Call light placed in reach. Side rails up x 2. Bed placed in lowest position. Brakes of bed on. Patient ready for evaluation- chart flagged. --19:08 Le Javed R.N. EKG time: (1901). EKG was ordered, performed by a tech and shown to the ED physician. --19:09 Le Javed R.N. Glucose: 113. --19:10 Le Javed R.N. Care transferred and report given (to SHAISTA Acharya). --19:25 Le Javed R.N. 19:56 06/15/16. BP: 147/101. HR: 98. RR: 17. O2 saturation: 98%. Pain level now 0/10. --19:57 Patrizia Christina R.N. retirement actuary, pulse oximeter and NIBP monitor placed on patient; cardiac care nurse- Lead II and V5; monitor alarms on. Patient gowned. Reassurance given. Call light placed in reach. ( pt in SR on monitor, no ectopy noted, US at bedside preparing for study.). --19:57 Patrizia Christina R.N. 20:31 06/15/16. BP: 147/101. HR: 98. RR: 17. O2 saturation: 100%. Pain level now: 0/10. --20:33 Patrizia Christina R.N. ( US cont at bedside, pt updated on lab results per husbands request, pt asked to eat, asked pt to remain NPO until we have studies completed.). --20:33 Patrizia Christina R.N. 19:35 06/15/2016 Morphine IV 4 mg (HIGH ALERT MEDICATION, NOW) was refused by patient and prior to this RN assuming care, pt refused, wasted with Judah Cornejo RN because pain is gone. Patrizia Christina --20:35 Patrizia Christina R.N. 20:57 06/15/16. BP: 148/81. HR: 97. RR: 17. O2 saturation: 98%. Pain level now: 0/10. Additional comments: pt denies cp, does c/o chronic back pain. --20:59 Patrizia Christina R.N. 22:26 06/15/2016 GI COCKTAIL WHITE (Simethicone) PO 30 mL given. Allergies verified and confirmed 5 rights. --22:31 Patrizia Christina R.N. ( pt reports improvement since gi cocktail, preparing pt for dispo). --22:45 Patrizia Christina R.N. 22:50 06/15/2016 GI COCKTAIL WHITE PO Response: no adverse reaction pain is gone now. Symptoms have improved the patient feels better. --22:55 Patrizia Christina R.N. DISPOSITION / DISCHARGE 22:49 06/15/2016 Site #1 removed upon discharge. Bandaid applied. --22:55 Patrizia Christina R.N. Condition at departure: improved. The goals identified in the patient's plan of care were met. No learning barriers present. Discharge instructions provided and reviewed with the patient and family. Reviewed medication(s) information. Patient and family verbalized understanding. Written instructions provided in [place]. The patient was discharged by the physician. She was discharged home and accompanied by spouse. She left the Emergency Department ambulatory and via private vehicle. Spouse driving. ( pt dc home pain free, ambulatory to lobby with steady gait, iv dc intact, rx and f/u instructions provided and pt verbalized understanding). --22:59 Patrizia Christina R.N. 22:54 06/15/16. BP: 140/75. HR: 94 (regular and normal rate). RR: 17. O2 saturation: 98% on room air. Temp: 98.3 F (oral). Pain level now: 0/10. --22:59 Patrizia Christina R.N. Locked/Released at 06/15/2016 23:02 by Patrizia Christina R.N.
--- NOTE | 2016-06-15 22:12 | ED NURSING NOTES ---
Clinical Report - Nurses [facility] [address] [place] [address] 06/15/2016 18:47 Patient: ANNA MARROQUIN TRIAGE Triage time 1850. Acuity: LEVEL 3. Chief Complaint: CHEST PAIN (chest pain started x1 month ago. 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 Alert. No acute distress. SEPSIS SCREEN: Sepsis Screen. Negative (no infection suspected/documented). LETTY COMA SCORE: Letty Coma Scale: 15- eyes open spontaneously (4); best verbal response- oriented x 4 (5); best motor response- obeys commands (6). --19:10 Le Javed R.N. 18:58 06/15/16. BP: 162/98. HR: 100. RR: 18. O2 saturation: 96%. Temp: 98.3 F. Pain level now 0/10. --19:10 Le Javed R.N. Weight: 104.3 kg stated. Height/Length: 66 inches Per Patient. BMI: 37.1. --19:03 Le Javed R.N. Medications Atenolol Oral 50 mg, at bedtime. Hydrochlorothiazide Oral 25 mg, daily. Lantus Subcutaneous 48 units, 2x a day. Novalog 30 units base and sliding scale, three times a day. Tramadol HCL Oral 50 mg, at bedtime. --19:04 Le Javed R.N. Allergies No Known Drug Allergy. --19:04 Le Javed R.N. History Arrived by private vehicle. Historian: patient. Accompanied by (boy friend). Primary physician (Dr. Cruz). ( Asked pt. to put gown on and pt. was upset stating she was going to leave and go to prov. If we didn't treat her like a patient. Educated pt. and instructed pt. about process of getting an ekg and r/o cardiac problems. Pt. agreed to stay for an ekg.). PAST MEDICAL HX: Immunizations: up-to-date. SOCIAL HX: Heavy tobacco smoker (cigarette)- less than 1 pack per day. History of drug use: marijuana. (pt. states she had not used for 20 years). No alcohol use. No infectious disease exposure. ABUSE ASSESSMENT: Abuse assessment: The patient was asked "Do you feel safe in your home?" and "Has anyone hurt you or threatened to hurt you?". No report of abuse. NUTRITIONAL RISK ASSESSMENT: The nutritional risk assessment revealed no deficiencies. FUNCTIONAL ASSESSMENT: Functional assessment: no impairments noted. LEARNING NEEDS ASSESSMENT: The learning needs assessment revealed no barriers. --19:10 Le Javed R.N. PROBLEMS: Dehydration. Laceration. Adverse Drug Reaction. URI. Diarrhea. Dental Pain. Hyperglycemia. Hypokalemia. Vomiting. Abdominal Pain. Animal Bite. Contusion. Sprain. Insect Bite(s). Skin Rash. Environmental Allergies. Panic Attack. Chest Pain. Anxiety Reaction. Asthma. Diabetes Mellitus. --19:05 Le Javed R.N. ADDITIONAL SURGERIES: Hysterectomy. --19:05 Le Javed R.N. Interventions ID band on patient. Transported via wheelchair. --19:10 Le Javed R.N. PHYSICAL ASSESSMENT To room via wheelchair. GENERAL / NEURO / PSYCH: Alert. Appears in no acute distress. HEENT: Mucous membranes are pink. RESPIRATORY: Respirations not labored. CVS: Capillary refill less than 2 seconds. SKIN: Skin is warm and dry. --19:08 Le Javed R.N. CVS: Cardiac rhythm: normal sinus rhythm; (86). --19:10 Le Javed R.N. ( MD at bedside assessing pt. assumed care of pt, pt pain free at this time, pt in SR on monitor, pt reports pain to left lower extremity that has wax/wane and is concerned for a clot. pt reports no hx, does have diabetic neuropathy, however reports "this is a different pain" s/o at bedside). GENERAL / NEURO / PSYCH: Alert. Oriented X 4. HEENT: Pupils equal, round and reactive to light. Mucous membranes are pink. RESPIRATORY: Respirations not labored. Breath sounds within normal limits. CVS: Cardiac rhythm: (SR). Capillary refill less than 2 seconds. SKIN: Skin is warm and dry. Normal skin turgor. --19:23 Patrizia Crhistina R.N. NURSING PROGRESS NOTES 19:07 06/15/2016 Site #1 started via IV in the left antecubital space with an 20g angiocath, with aseptic technique and good blood return; one attempt. Blood drawn. Labeled in the presence of the patient and sent to the lab. Saline lock flushed with 10 mL saline (accessed by Judah Cornejo RN). --19:07 Le Javed R.N. monitor technician, pulse oximeter and NIBP monitor placed on patient; night monitor- Lead II; monitor alarms on. Patient gowned. Head of bed elevated. Two patient identifiers checked. Call light placed in reach. Side rails up x 2. Bed placed in lowest position. Brakes of bed on. Patient ready for evaluation- chart flagged. --19:08 Le Javed R.N. EKG time: (1901). EKG was ordered, performed by a tech and shown to the ED physician. --19:09 Le Javed R.N. Glucose: 113. --19:10 Le Javed R.N. Care transferred and report given (to SHAISTA Acharya). --19:25 Le Javed R.N. 19:56 06/15/16. BP: 147/101. HR: 98. RR: 17. O2 saturation: 98%. Pain level now 0/10. --19:57 Patrizia Christina R.N. monitor technician, pulse oximeter and NIBP monitor placed on patient; night monitor- Lead II and V5; monitor alarms on. Patient gowned. Reassurance given. Call light placed in reach. ( pt in SR on monitor, no ectopy noted, US at bedside preparing for study.). --19:57 Patrizia Christina R.N. 20:31 06/15/16. BP: 147/101. HR: 98. RR: 17. O2 saturation: 100%. Pain level now: 0/10. --20:33 Patrizia Christina R.N. ( US cont at bedside, pt updated on lab results per husbands request, pt asked to eat, asked pt to remain NPO until we have studies completed.). --20:33 Patrizia Christina R.N. 19:35 06/15/2016 Morphine IV 4 mg (HIGH ALERT MEDICATION, NOW) was refused by patient and prior to this RN assuming care, pt refused, wasted with Judah Cornejo RN because pain is gone. Patrizia Christina --20:35 Patrizia Christina R.N. 20:57 06/15/16. BP: 148/81. HR: 97. RR: 17. O2 saturation: 98%. Pain level now: 0/10. Additional comments: pt denies cp, does c/o chronic back pain. --20:59 Patrizia Christina R.N. 22:26 06/15/2016 GI COCKTAIL WHITE (Simethicone) PO 30 mL given. Allergies verified and confirmed 5 rights. --22:31 Patrizia Christina R.N. ( pt reports improvement since gi cocktail, preparing pt for dispo). --22:45 Patrizia Christina R.N. 22:50 06/15/2016 GI COCKTAIL WHITE PO Response: no adverse reaction pain is gone now. Symptoms have improved the patient feels better. --22:55 Patrizia Christina R.N. DISPOSITION / DISCHARGE 22:49 06/15/2016 Site #1 removed upon discharge. Bandaid applied. --22:55 Patrizia Christina R.N. Condition at departure: improved. The goals identified in the patient's plan of care were met. No learning barriers present. Discharge instructions provided and reviewed with the patient and family. Reviewed medication(s) information. Patient and family verbalized understanding. Written instructions provided in Tuvaluan. The patient was discharged by the physician. She was discharged home and accompanied by spouse. She left the Emergency Department ambulatory and via private vehicle. Spouse driving. ( pt dc home pain free, ambulatory to lobby with steady gait, iv dc intact, rx and f/u instructions provided and pt verbalized understanding). --22:59 Patrizia Christina R.N. 22:54 06/15/16. BP: 140/75. HR: 94 (regular and normal rate). RR: 17. O2 saturation: 98% on room air. Temp: 98.3 F (oral). Pain level now: 0/10. --22:59 Patrizia Christina R.N. Locked/Released at 06/15/2016 23:02 by Patrizia Christina R.N.
--- NOTE | 2016-06-15 22:12 | ED ORDER SUMMARY ---
..... 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) (19:04 06/15/2016 Kristy Rabago) (19:10 Bonnie R.N.) EKG - ER Stat (19:06/15/2016 Kristy Rabago) (Ack 19:05 Kriss) (19:10 Kriss) Pulse oximeter (:06/15/2016 Kristy Rabago) (19:10 Sanjuanaitz R.N.) Chest 1V Urgent (19:06/15/2016 Kristy Rabago) (Ack 19:06 Kriss) (19:30 KHoerner) CBC w Diff Urgent (19:05 06/15/2016 Kristy Rabago) (Ack 19:06 Kriss) (19:10 Bonnie R.N.) CMP Urgent (19:05 06/15/2016 Kristy Rabago) (Ack 19:06 Kriss) (19:10 SReitz R.N.) D-Dimer Urgent (19:05 06/15/2016 Kristy Rabago) (Ack 19:06 Kriss) (19:10 Bonnie R.N.) Urine Urgent (19:05 06/15/2016 Kristy Rabago) (Ack 19:06 Kriss) (20:33 KPage-Jacob R.N.) Urine Drug Screen Urgent (19:05 06/15/2016 Kristy Rabago) (Ack 19:06 Kriss) (20:33 KPageJoselito R.N.) Troponin-I Urgent (19:05 06/15/2016 Kristy Rabago) (Ack 19:06 Kriss) (19:10 Bonnie R.N.) US Venous Bilat Urgent (19:06/15/2016 Kristy Rabago) (Ack 19:17 Kriss) (20:33 Huber Trujillo.N.) Troponin-I (july draw now) Urgent (21:05 06/15/2016 Kristy Rabago) (Ack 21:10 IJurca ER Tech1) (22:03 IJurca ER Tech1) MEDICATION ORDERS: GI Cocktail WHITE PO 30 mL (NOW) (21:59 06/15/2016 Kristy Rabago) (22:31 Huber R.N.) IV FLUIDS: Morphine IV 4 mg (HIGH ALERT MEDICATION, NOW) (19:04 06/15/2016 Kristy Rabago) (Ack 19:13 Candy R.N.) IV Saline Lock (19:05 06/15/2016 Kristy Rabago) (Ack 19:13 JDaphne R.N.) ORDER SHEET NOTES: [Electronically signed by Patrizia Christina R.N. (23:02 06/15/2016)] [Electronically signed by Nam Harper Dr. (09:45 06/16/2016)] [Electronically locked/signed by Patrizia Christina R.N. (23:02 06/15/2016)]
--- NOTE | 2016-06-16 09:45 | ED MAR SUMMARY ---
..... Medication Administration Record [facility] [address] [place] [address] Patient: ANNA MARROQUIN Visit ID: [id number] 50y, F Weight: 104.3 kg Height/Length: 66 in BMI: 37.1 ALLERGIES: No Known Drug Allergy Given 22:26 06/15/2016 Patrizia Christina RMaritza Medication Administered: GI COCKTAIL WHITE [PO] (SIMETHICONE), Dose: 30 mL PO. Medication Ordered: GI Cocktail WHITE PO 30 mL (NOW).
--- NOTE | 2016-06-16 09:45 | ED MED RECONCILIATION SUMMARY ---
Patient: ANNA MARROQUIN Medication Reconciliation Report [facility] VisitID: [id number] [address] [place] [address] 50y, F Registration Date/Time: 06/15/2016 Weight: 104.3 kg Height/Length: 66 in. BMI: 37.1 ALLERGIES: No Known Drug Allergy The patient's Home Medications are listed below: CONTINUE TAKING THE FOLLOWING MEDICATIONS: Atenolol Oral 50 mg, at bedtime Hydrochlorothiazide Oral 25 mg, daily Lantus Subcutaneous 48 units, 2x a day Novalog 30 units base and sliding scale, three times a day Tramadol HCL Oral 50 mg, at bedtime The source(s) of the original Home Medication information: Not obtained. The following Medications were given to the patient in the Emergency Department: GI COCKTAIL WHITE [PO] PO 30 mL, administered: 06/15/2016 10:26:00 PM The following Medications were prescribed to the patient: Pepcid 20 mg: take 1 orally every 12 hours as needed for indigestion, upset stomach or heartburn. Dispense thirty (30). No refills. Substitution is permissible. -- Nam Harper Dr. Aspirin 81 mg (available over the counter): take 1 orally every 24 hours. Dispense thirty (30). No refills. -- Nam Harper Dr.
--- NOTE | 2016-06-16 09:45 | ED MAR SUMMARY ---
..... Medication Administration Record [facility] [address] [place] [address] Patient: ANNA MARROQUIN Visit ID: [id number] 50y, F Weight: 104.3 kg Height/Length: 66 in BMI: 37.1 ALLERGIES: No Known Drug Allergy Given 22:26 06/15/2016 Patrizia Christina RMaritza Medication Administered: GI COCKTAIL WHITE [PO] (SIMETHICONE), Dose: 30 mL PO. Medication Ordered: GI Cocktail WHITE PO 30 mL (NOW).
--- NOTE | 2016-06-16 09:45 | ED MED RECONCILIATION SUMMARY ---
Patient: ANNA MARROQUIN Medication Reconciliation Report [facility] VisitID: [id number] [address] [place] [address] 50y, F Registration Date/Time: 06/15/2016 Weight: 104.3 kg Height/Length: 66 in. BMI: 37.1 ALLERGIES: No Known Drug Allergy The patient's Home Medications are listed below: CONTINUE TAKING THE FOLLOWING MEDICATIONS: Atenolol Oral 50 mg, at bedtime Hydrochlorothiazide Oral 25 mg, daily Lantus Subcutaneous 48 units, 2x a day Novalog 30 units base and sliding scale, three times a day Tramadol HCL Oral 50 mg, at bedtime The source(s) of the original Home Medication information: Not obtained. The following Medications were given to the patient in the Emergency Department: GI COCKTAIL WHITE [PO] PO 30 mL, administered: 06/15/2016 10:26:00 PM The following Medications were prescribed to the patient: Pepcid 20 mg: take 1 orally every 12 hours as needed for indigestion, upset stomach or heartburn. Dispense thirty (30). No refills. Substitution is permissible. -- Nam Harper Dr. Aspirin 81 mg (available over the counter): take 1 orally every 24 hours. Dispense thirty (30). No refills. -- Nam Harper Dr.
--- NOTE | 2016-06-16 09:45 | ED DISCHARGE INSTRUCTIONS ---
Patient: ANNA MARROQUIN General Instructions [facility] VisitID: [id number] [place] [address] 50y, F Registration Date/Time: 06/15/2016 06/15/2016 20:57 BP: 148/81. HR: 97. RR: 17. O2 saturation: 98%. Pain level now: 0/10. Oxygen saturation normal. Atypical chest pain .12 lead EKG performed. (acute). INSTRUCTIONS Warnings: GENERAL WARNINGS: Return or contact your physician immediately if your condition worsens or changes unexpectedly, if not improving as expected, or if other problems arise. SPECIFICALLY, return if you develop chest, neck, jaw, shoulder, arm, or back pain, difficulty breathing, a fluttering sensation in your chest, lightheadedness, fainting, excessive fatigue, or sudden sweating. Your Current Medications: CONTINUE TAKING THE FOLLOWING MEDICATIONS: Atenolol Oral : 50 mg at bedtime. Hydrochlorothiazide Oral : 25 mg daily. Lantus Subcutaneous : 48 units 2x a day. Novalog* : 30 units base and sliding scale three times a day. Tramadol HCL Oral : 50 mg at bedtime. Prescription Medications: Pepcid 20 mg: take 1 orally every 12 hours as needed for indigestion, upset stomach or heartburn. Dispense thirty (30). No refills. Substitution is permissible. OTC Medications: Aspirin 81 mg (available over the counter): take 1 orally every 24 hours. Dispense thirty (30). No refills. Follow-up: Return to the emergency department as needed. Follow up with a dealer support technician Dr. Stahl . Reason for referral: call tomorrow for an appointment. inform them you were here in the emergency department with chest pain. . Summary of care provided to patient and family via paper. Follow up with your doctor in three days. Reason for referral: recheck today's concerns. Summary of care provided to patient via paper. Screening today revealed the patient's blood pressure to be in the normal range. The patient should follow up with a primary care provider for blood pressure management. Understanding of the discharge instructions verbalized by patient. ADDITIONAL INFORMATION Chest Pain, Uncertain Cause Chest pain can happen for a number of reasons. Sometimes the cause can not be determined. If yourcondition does not seem serious, and your pain does not appear to be coming from your heart, your doctor may recommend watching it closely. Sometimes the signs of a serious problem take more time to appear. Therefore, watch for the warning signs listed below. Home care After your visit, follow these recommendations: Rest today and avoid strenuous activity. Take any prescribed medicine as directed. Follow-up care Follow up with your doctor or this facility as instructed or if you do not start to feel better within 24 hours. Call 911 Get immediate medical attention if any of the following occur: A change in the type of pain: if it feels different, becomes more severe, lasts longer, or begins to spread into your shoulder, arm, neck, jaw or back Shortness of breath or increased pain with breathing Weakness, dizziness, or fainting Rapid heart beat Get prompt medical attention Call your doctor right away if any of the following occur: Cough with dark colored sputum (phlegm) or blood Fever of 100.4F(38C) or higher, or as directed by your health care provider Swelling, pain or redness in one leg Famotidine Oral tablet What is this medicine? FAMOTIDINE (fa JENIFER ti josiah) is a type of antihistamine that blocks the release of stomach acid. It is used to treat stomach or intestinal ulcers. It can also relieve heartburn from acid reflux. How should I use this medicine? Take this medicine by mouth with a glass of water. Follow the directions on the prescription label. If you only take this medicine once a day, take it at bedtime. Take your doses at regular intervals. Do not take your medicine more often than directed. Talk to your supervisor assembly room regarding the use of this medicine in children. Special care may be needed. What side effects may I notice from receiving this medicine? Side effects that you should report to your doctor or health health care law specialist as soon as possible: agitation, nervousness confusion hallucinations skin rash, itching Side effects that usually do not require medical attention (report to your doctor or health health care law specialist if they continue or are bothersome): constipation diarrhea dizziness headache What may interact with this medicine? delavirdine itraconazole ketoconazole What if I miss a dose? If you miss a dose, take it as soon as you can. If it is almost time for your next dose, take only that dose. Do not take double or extra doses. Where should I keep my medicine? Keep out of the reach of children. Store at room temperature between 15 and 30 degrees C (59 and 86 degrees F). Do not freeze. Throw away any unused medicine after the expiration date. What should I tell my health care provider before I take this medicine? They need to know if you have any of these conditions: kidney or liver disease trouble swallowing an unusual or allergic reaction to famotidine, other medicines, foods, dyes, or preservatives or trying to get breast-feeding What should I watch for while using this medicine? Tell your doctor or health health care law specialist if your condition does not start to get better or if it gets worse. Finish the full course of tablets prescribed, even if you feel better. Do not take with aspirin, ibuprofen or other antiinflammatory medicines. These can make your condition worse. Do not smoke cigarettes or drink alcohol. These cause irritation in your stomach and can increase the time it will take for ulcers to heal. If you get black, tarry stools or vomit up what looks like coffee grounds, call your doctor or health health care law specialist at once. You may have a bleeding ulcer. Aspirin Oral tablet What is this medicine? ASPIRIN ( pir in) is a pain reliever. It is used to treat mild pain and fever. This medicine is also used as directed by a doctor to prevent and to treat heart attacks, to prevent strokes, and to treat arthritis or inflammation. How should I use this medicine? Take this medicine by mouth with a glass of water. Follow the directions on the package or prescription label. You can take this medicine with or without food. If it upsets your stomach, take it with food. Do not take your medicine more often than directed. Talk to your supervisor assembly room regarding the use of this medicine in children. While this drug may be prescribed for children as young as 12 years of age for selected conditions, precautions do apply. Children and teenagers should not use this medicine to treat chicken pox or flu symptoms unless directed by a doctor. Patients over 65 years old may have a stronger reaction and need a smaller dose. What side effects may I notice from receiving this medicine? Side effects that you should report to your doctor or health health care law specialist as soon as possible: allergic reactions like skin rash, itching or hives, swelling of the face, lips, or tongue breathing problems changes in hearing, ringing in the ears confusion general ill feeling or flu-like symptoms pain on swallowing redness, blistering, peeling or loosening of the skin, including inside the mouth or nose signs and symptoms of bleeding such as bloody or black, tarry stools; red or dark-brown urine; spitting up blood or brown material that looks like coffee grounds; red spots on the skin; unusual bruising or bleeding from the eye, gums, or nose trouble passing urine or change in the amount of urine unusually weak or tired yellowing of the eyes or skin Side effects that usually do not require medical attention (report to your doctor or health health care law specialist if they continue or are bothersome): diarrhea or constipation nausea, vomiting stomach gas, heartburn What may interact with this medicine? Do not take this medicine with any of the following medications: cidofovir ketorolac probenecid This medicine may also interact with the following medications: alcohol alendronate bismuth subsalicylate flavocoxid herbal supplements like feverfew, garlic, salvatore, ginkgo biloba, horse chestnut medicines for diabetes or glaucoma like acetazolamide, methazolamide medicines for gout medicines that treat or prevent blood clots like enoxaparin, heparin, ticlopidine, warfarin other aspirin and aspirin-like medicines NSAIDs, medicines for pain and inflammation, like ibuprofen or naproxen pemetrexed sulfinpyrazone varicella live vaccine What if I miss a dose? If you are taking this medicine on a regular schedule and miss a dose, take it as soon as you can. If it is almost time for your next dose, take only that dose. Do not take double or extra doses. Where should I keep my medicine? Keep out of the reach of children. Store at room temperature between 15 and 30 degrees C (59 and 86 degrees F). Protect from heat and moisture. Do not use this medicine if it has a strong vinegar smell. Throw away any unused medicine after the expiration date. What should I tell my health care provider before I take this medicine? They need to know if you have any of these conditions: anemia asthma bleeding problems child with chickenpox, the flu, or other viral infection diabetes gout if you frequently drink alcohol containing drinks kidney disease liver disease low level of vitamin K lupus smoke tobacco stomach ulcers or other problems an unusual or allergic reaction to aspirin, tartrazine dye, other medicines, dyes, or preservatives or trying to get breast-feeding What should I watch for while using this medicine? If you are treating yourself for pain, tell your doctor or health health care law specialist if the pain lasts more than 10 days, if it gets worse, or if there is a new or different kind of pain. Tell your doctor if you see redness or swelling. Also, check with your doctor if you have a fever that lasts for more than 3 days. Only take this medicine to prevent heart attacks or blood clotting if prescribed by your doctor or health health care law specialist. Do not take aspirin or aspirin-like medicines with this medicine. Too much aspirin can be dangerous. Always read the labels carefully. This medicine can irritate your stomach or cause bleeding problems. Do not smoke cigarettes or drink alcohol while taking this medicine. Do not lie down for 30 minutes after taking this medicine to prevent irritation to your throat. If you are scheduled for any medical or dental procedure, tell your healthcare provider that you are taking this medicine. You may need to stop taking this medicine before the procedure. You have been given the following additional information: Chest Pain, Uncertain Cause Famotidine Oral tablet Aspirin Oral tablet (Electronically signed by Nam Harper Dr. 06/16/2016 9:45)
--- NOTE | 2016-06-16 09:45 | ED DISCHARGE INSTRUCTIONS ---
Patient: ANNA MARROQUIN General Instructions [facility] VisitID: [id number] [place] [address] 50y, F Registration Date/Time: 06/15/2016 06/15/2016 20:57 BP: 148/81. HR: 97. RR: 17. O2 saturation: 98%. Pain level now: 0/10. Oxygen saturation normal. Atypical chest pain .12 lead EKG performed. (acute). INSTRUCTIONS Warnings: GENERAL WARNINGS: Return or contact your physician immediately if your condition worsens or changes unexpectedly, if not improving as expected, or if other problems arise. SPECIFICALLY, return if you develop chest, neck, jaw, shoulder, arm, or back pain, difficulty breathing, a fluttering sensation in your chest, lightheadedness, fainting, excessive fatigue, or sudden sweating. Your Current Medications: CONTINUE TAKING THE FOLLOWING MEDICATIONS: Atenolol Oral : 50 mg at bedtime. Hydrochlorothiazide Oral : 25 mg daily. Lantus Subcutaneous : 48 units 2x a day. Novalog* : 30 units base and sliding scale three times a day. Tramadol HCL Oral : 50 mg at bedtime. Prescription Medications: Pepcid 20 mg: take 1 orally every 12 hours as needed for indigestion, upset stomach or heartburn. Dispense thirty (30). No refills. Substitution is permissible. OTC Medications: Aspirin 81 mg (available over the counter): take 1 orally every 24 hours. Dispense thirty (30). No refills. Follow-up: Return to the emergency department as needed. Follow up with a tariff inspector Dr. Stahl . Reason for referral: call tomorrow for an appointment. inform them you were here in the emergency department with chest pain. . Summary of care provided to patient and family via paper. Follow up with your doctor in three days. Reason for referral: recheck today's concerns. Summary of care provided to patient via paper. Screening today revealed the patient's blood pressure to be in the normal range. The patient should follow up with a primary care provider for blood pressure management. Understanding of the discharge instructions verbalized by patient. ADDITIONAL INFORMATION Chest Pain, Uncertain Cause Chest pain can happen for a number of reasons. Sometimes the cause can not be determined. If yourcondition does not seem serious, and your pain does not appear to be coming from your heart, your doctor may recommend watching it closely. Sometimes the signs of a serious problem take more time to appear. Therefore, watch for the warning signs listed below. Home care After your visit, follow these recommendations: Rest today and avoid strenuous activity. Take any prescribed medicine as directed. Follow-up care Follow up with your doctor or this facility as instructed or if you do not start to feel better within 24 hours. Call 911 Get immediate medical attention if any of the following occur: A change in the type of pain: if it feels different, becomes more severe, lasts longer, or begins to spread into your shoulder, arm, neck, jaw or back Shortness of breath or increased pain with breathing Weakness, dizziness, or fainting Rapid heart beat Get prompt medical attention Call your doctor right away if any of the following occur: Cough with dark colored sputum (phlegm) or blood Fever of 100.4F(38C) or higher, or as directed by your health care provider Swelling, pain or redness in one leg Famotidine Oral tablet What is this medicine? FAMOTIDINE (fa JENIFER ti josiah) is a type of antihistamine that blocks the release of stomach acid. It is used to treat stomach or intestinal ulcers. It can also relieve heartburn from acid reflux. How should I use this medicine? Take this medicine by mouth with a glass of water. Follow the directions on the prescription label. If you only take this medicine once a day, take it at bedtime. Take your doses at regular intervals. Do not take your medicine more often than directed. Talk to your tradeshow worker regarding the use of this medicine in children. Special care may be needed. What side effects may I notice from receiving this medicine? Side effects that you should report to your doctor or health day care provider as soon as possible: agitation, nervousness confusion hallucinations skin rash, itching Side effects that usually do not require medical attention (report to your doctor or health day care provider if they continue or are bothersome): constipation diarrhea dizziness headache What may interact with this medicine? delavirdine itraconazole ketoconazole What if I miss a dose? If you miss a dose, take it as soon as you can. If it is almost time for your next dose, take only that dose. Do not take double or extra doses. Where should I keep my medicine? Keep out of the reach of children. Store at room temperature between 15 and 30 degrees C (59 and 86 degrees F). Do not freeze. Throw away any unused medicine after the expiration date. What should I tell my health care provider before I take this medicine? They need to know if you have any of these conditions: kidney or liver disease trouble swallowing an unusual or allergic reaction to famotidine, other medicines, foods, dyes, or preservatives or trying to get breast-feeding What should I watch for while using this medicine? Tell your doctor or health day care provider if your condition does not start to get better or if it gets worse. Finish the full course of tablets prescribed, even if you feel better. Do not take with aspirin, ibuprofen or other antiinflammatory medicines. These can make your condition worse. Do not smoke cigarettes or drink alcohol. These cause irritation in your stomach and can increase the time it will take for ulcers to heal. If you get black, tarry stools or vomit up what looks like coffee grounds, call your doctor or health day care provider at once. You may have a bleeding ulcer. Aspirin Oral tablet What is this medicine? ASPIRIN ( pir in) is a pain reliever. It is used to treat mild pain and fever. This medicine is also used as directed by a doctor to prevent and to treat heart attacks, to prevent strokes, and to treat arthritis or inflammation. How should I use this medicine? Take this medicine by mouth with a glass of water. Follow the directions on the package or prescription label. You can take this medicine with or without food. If it upsets your stomach, take it with food. Do not take your medicine more often than directed. Talk to your tradeshow worker regarding the use of this medicine in children. While this drug may be prescribed for children as young as 12 years of age for selected conditions, precautions do apply. Children and teenagers should not use this medicine to treat chicken pox or flu symptoms unless directed by a doctor. Patients over 65 years old may have a stronger reaction and need a smaller dose. What side effects may I notice from receiving this medicine? Side effects that you should report to your doctor or health day care provider as soon as possible: allergic reactions like skin rash, itching or hives, swelling of the face, lips, or tongue breathing problems changes in hearing, ringing in the ears confusion general ill feeling or flu-like symptoms pain on swallowing redness, blistering, peeling or loosening of the skin, including inside the mouth or nose signs and symptoms of bleeding such as bloody or black, tarry stools; red or dark-brown urine; spitting up blood or brown material that looks like coffee grounds; red spots on the skin; unusual bruising or bleeding from the eye, gums, or nose trouble passing urine or change in the amount of urine unusually weak or tired yellowing of the eyes or skin Side effects that usually do not require medical attention (report to your doctor or health day care provider if they continue or are bothersome): diarrhea or constipation nausea, vomiting stomach gas, heartburn What may interact with this medicine? Do not take this medicine with any of the following medications: cidofovir ketorolac probenecid This medicine may also interact with the following medications: alcohol alendronate bismuth subsalicylate flavocoxid herbal supplements like feverfew, garlic, salvatore, ginkgo biloba, horse chestnut medicines for diabetes or glaucoma like acetazolamide, methazolamide medicines for gout medicines that treat or prevent blood clots like enoxaparin, heparin, ticlopidine, warfarin other aspirin and aspirin-like medicines NSAIDs, medicines for pain and inflammation, like ibuprofen or naproxen pemetrexed sulfinpyrazone varicella live vaccine What if I miss a dose? If you are taking this medicine on a regular schedule and miss a dose, take it as soon as you can. If it is almost time for your next dose, take only that dose. Do not take double or extra doses. Where should I keep my medicine? Keep out of the reach of children. Store at room temperature between 15 and 30 degrees C (59 and 86 degrees F). Protect from heat and moisture. Do not use this medicine if it has a strong vinegar smell. Throw away any unused medicine after the expiration date. What should I tell my health care provider before I take this medicine? They need to know if you have any of these conditions: anemia asthma bleeding problems child with chickenpox, the flu, or other viral infection diabetes gout if you frequently drink alcohol containing drinks kidney disease liver disease low level of vitamin K lupus smoke tobacco stomach ulcers or other problems an unusual or allergic reaction to aspirin, tartrazine dye, other medicines, dyes, or preservatives or trying to get breast-feeding What should I watch for while using this medicine? If you are treating yourself for pain, tell your doctor or health day care provider if the pain lasts more than 10 days, if it gets worse, or if there is a new or different kind of pain. Tell your doctor if you see redness or swelling. Also, check with your doctor if you have a fever that lasts for more than 3 days. Only take this medicine to prevent heart attacks or blood clotting if prescribed by your doctor or health day care provider. Do not take aspirin or aspirin-like medicines with this medicine. Too much aspirin can be dangerous. Always read the labels carefully. This medicine can irritate your stomach or cause bleeding problems. Do not smoke cigarettes or drink alcohol while taking this medicine. Do not lie down for 30 minutes after taking this medicine to prevent irritation to your throat. If you are scheduled for any medical or dental procedure, tell your healthcare provider that you are taking this medicine. You may need to stop taking this medicine before the procedure. You have been given the following additional information: Chest Pain, Uncertain Cause Famotidine Oral tablet Aspirin Oral tablet (Electronically signed by Nam Harper Dr. 06/16/2016 9:45)
== END 2016-06-15 22:54 | disposition home or self-care (01) ==
LOC: ED SRH 18:46
DX: R07.89 Other chest pain (principal); E11.9 Type 2 diabetes mellitus without complications; J45.909 Unspecified asthma, uncomplicated; Z79.4 Long term (current) use of insulin; F17.210 Nicotine dependence, cigarettes, uncomplicated
CPT/HCPCS: 90074; 90100; 90616; 91556; 92760; 92761; 92762; 92763; 92764; 92765; 92766; 92767; 93070; 95059